=== PATIENT | male | born 1970 | race Two or more races ===

== ENCOUNTER 2020-08-14 23:17 | Emergency (ER) | payer MEDICAID ==
[~2020-08-14] VITALS: Ht 175.3 cm; Wt 79.5 kg
[2020-08-14 23:44] VITALS: BP 150/84
== END 2020-08-15 01:25 | disposition left against medical advice (07) ==
LOC: EMS 23:19
DX: R51.9 Headache, unspecified (principal); Z53.21 Procedure and treatment not carried out due to patient leaving prior to being seen by health care provider